=== PATIENT | male | born 1940 | race Caucasian/White ===

== ENCOUNTER 2020-11-28 09:09 | Inpatient (IN) | payer OTHER, MEDICARE ==
[~2020-11-28] VITALS: Ht 177.8 cm; Wt 89.8 kg
[~2020-11-28 09:09] MED LIST: ALBU6.7H3 IH; ASPI-1265 PO; BUDE10.2 INH; CLOP75TA34 PO; FINA5TAB11 PO; FURO40TA4 PO; LOP25T PO; NAPR-56 PO; NOR5T PO; OMEP40CA13 PO; PRED10TA PO; SIMV80TA2 PO; TIOT18CA3 INH
[2020-11-28 10:21] LABS: BASOPHILS # (AUTO) 0.1 X10'3 (0-0.2); BASOPHILS % (AUTO) 0.9 % (0-1); EOSINOPHILS # (AUTO) 0.1 X10'3 (0-0.9); EOSINOPHILS % (AUTO) 1.4 % (0-6); HEMOGLOBIN 13.3 g/dl (14.0-17.9); LYMPHOCYTES # (AUTO) 1.3 X10'3 (1.1-4.8); LYMPHOCYTES % (AUTO) 14.2 % (21-51); MEAN CORPUSCULAR HEMOGLOBIN 31.4 PG (27.0-31.0); MEAN CORPUSCULAR HGB CONC 33.2 g/dL (33.0-36.5); MEAN CORPUSCULAR VOLUME 94.5 FL (78-98); MONOCYTES # (AUTO) 1.2 X10'3 (0-0.9); MONOCYTES % (AUTO) 12.5 % (2-12); NEUTROPHILS # (AUTO) 6.6 X10'3 (1.8-7.7); PLATELET COUNT 356 X10'3 (140-440); RED BLOOD COUNT 4.23 X10'6 (4.70-6.10); RED CELL DISTRIBUTION WIDTH 12.7 % (11.5-14.5); WHITE BLOOD COUNT 9.4 X10'3 (4.5-11.0)
[2020-11-28 11:30] LABS: ALANINE AMINOTRANSFERASE 28 U/L (12-78); ALBUMIN 3.1 G/DL (3.4-5.0); ALBUMIN/GLOBULIN RATIO 0.7 (1.1-1.5); ALKALINE PHOSPHATASE 189 IU/L (46-116); ANION GAP 8 (8-16); ASPARTATE AMINO TRANSFERASE 29 U/L (10-37); BILIRUBIN,TOTAL 0.7 MG/DL (0.1-1.0); BLOOD UREA NITROGEN 11 MG/DL (7-18); BUN/CREATININE RATIO 12.5 (5.4-32.0); CHLORIDE 98 MMOL/L (99-107); CREATININE 0.88 MG/DL (0.60-1.10); GLUCOSE 112 MG/DL (70-104); POTASSIUM 4.5 MMOL/L (3.5-5.1); SODIUM 133 MMOL/L (135-145); TOTAL CARBON DIOXIDE 26.8 MMOL/L (24-32); TOTAL PROTEIN 7.4 G/DL (6.4-8.2); eGFR 83 ML/MIN
[2020-11-28] MEDS ORDERED: iohexol 350MG/ML 100ml bottle IV ONE (11:36)
[2020-11-28] MEDS ORDERED: iohexol 350 MG/ML 50ML vial IV ONE (11:37)
[2020-11-28] MEDS ORDERED: morphine 4 MG/ML inj SYRINge IV PRN (13:05)
[2020-11-28] MEDS ORDERED: ondansetron/PF 4mg/2ml inj IV ONE (13:05)
[2020-11-28] MEDS ORDERED: vancomycin/NS 1 GM ADD-VANTAGE 250 ML IV ONE (13:30)
[2020-11-28] MEDS ORDERED: piperacillin/tazo 3.375gm/50ml 50 ML IV ONE (13:30)
[2020-11-28] MEDS ORDERED: normal saline 1000ml 1,000 ML IV SCH (14:05)
[2020-11-28] MEDS ORDERED: mag hydrox/Alum hydrox/simeth 30ml oral suspension PO PRN (14:45)
[2020-11-28] MEDS ORDERED: ALBUTEROL INHALER 1 PUFF/90 MCG INHALER IH PRN (14:45)
[2020-11-28] MEDS ORDERED: morphine 2 MG/ML inj. syringe IV PRN ×2 (14:45)
[2020-11-28] MEDS ORDERED: acetaminophen 325mg tablet PO PRN ×2 (14:45)
[2020-11-28] MEDS ORDERED: HYDROcodone/acetaminophen 5mg/325mg tablet PO PRN (14:45)
[2020-11-28] MEDS ORDERED: ondansetron/PF 4mg/2ml inj IV PRN (14:45)
[2020-11-28] MEDS: ipratropium/albuterol 3ml nebule IH SCH ×2 (16:02→20:26)
[2020-11-28] MEDS: normal saline 1000ml 1,000 ML IV SCH (16:55)
[2020-11-28] MEDS: ceFAZolin/D5W- 1GM premix 50 ML IV SCH (16:57)
--- NOTE | 2020-11-28 19:05 | NUR ---
Pt assisted to bedside comode. Pt had BM. Pt gets SOB with exertion. Pt states this has been happening for several months.
[2020-11-28] MEDS: budesonide 0.5mg/2ml UD nebule IH SCH (20:26)
[2020-11-28] MEDS: atorvastatin 20mg tablet PO SCH (20:53)
[2020-11-28] MEDS: metoprolol tartrate 25mg tablet PO SCH (20:53)
[2020-11-29] VITALS (9 sets, daily range): BP systolic 125–164; BP diastolic 53–80
[2020-11-29] MEDS: normal saline 1000ml 1,000 ML IV SCH ×4 (00:06→20:45)
[2020-11-29] MEDS: ceFAZolin/D5W- 1GM premix 50 ML IV SCH ×4 (00:37→23:46)
[2020-11-29] MEDS: naproxen 500mg tablet PO PRN ×2 (00:41→23:43)
[2020-11-29 02:16] LABS: BASOPHILS # (AUTO) 0.1 X10'3 (0-0.2); EOSINOPHILS # (AUTO) 0.1 X10'3 (0-0.9); EOSINOPHILS % (AUTO) 1.2 % (0-6); HEMATOCRIT 38.2 % (42.0-52.0); HEMOGLOBIN 12.9 g/dl (14.0-17.9); LYMPHOCYTES # (AUTO) 1.7 X10'3 (1.1-4.8); LYMPHOCYTES % (AUTO) 16.3 % (21-51); MEAN CORPUSCULAR HEMOGLOBIN 32.2 PG (27.0-31.0); MEAN CORPUSCULAR HGB CONC 33.7 g/dL (33.0-36.5); MEAN CORPUSCULAR VOLUME 95.5 FL (78-98); MEAN PLATELET VOLUME 8.1 FL (7.4-10.4); MONOCYTES # (AUTO) 1.2 X10'3 (0-0.9); MONOCYTES % (AUTO) 11.2 % (2-12); NEUTROPHILS # (AUTO) 7.5 X10'3 (1.8-7.7); NEUTROPHILS % (AUTO) 70.3 % (42-75); PLATELET COUNT 316 X10'3 (140-440); RED CELL DISTRIBUTION WIDTH 12.5 % (11.5-14.5); WHITE BLOOD COUNT 10.7 X10'3 (4.5-11.0)
[2020-11-29 02:29] LABS: ALANINE AMINOTRANSFERASE 28 U/L (12-78); ALBUMIN 2.8 G/DL (3.4-5.0); ALBUMIN/GLOBULIN RATIO 0.7 (1.1-1.5); ALKALINE PHOSPHATASE 181 IU/L (46-116); ANION GAP 7 (8-16); ASPARTATE AMINO TRANSFERASE 33 U/L (10-37); BILIRUBIN,TOTAL 0.4 MG/DL (0.1-1.0); BLOOD UREA NITROGEN 8 MG/DL (7-18); BUN/CREATININE RATIO 9.4 (5.4-32.0); CALCIUM 8.3 MG/DL (8.5-10.1); CHLORIDE 102 MMOL/L (99-107); CREATININE 0.85 MG/DL (0.60-1.10); GLUCOSE 123 MG/DL (70-104); POTASSIUM 4.2 MMOL/L (3.5-5.1); SODIUM 138 MMOL/L (135-145); TOTAL CARBON DIOXIDE 28.7 MMOL/L (24-32); TOTAL PROTEIN 6.6 G/DL (6.4-8.2); eGFR 87 ML/MIN
[2020-11-29 02:31] LABS: PARTIAL THROMBOPLASTIN TIME 26 SECONDS (22-32)
[2020-11-29] MEDS: ipratropium/albuterol 3ml nebule IH SCH ×4 (02:56→21:01)
--- NOTE | 2020-11-29 06:35 | NUR ---
Patient in room PCU 3017. I have received report from TIANNA Arriaga and had the opportunity to ask questions and assume patient care.
[2020-11-29] MEDS: aspirin 81mg tab.chew PO SCH (08:00)
[2020-11-29] MEDS: clopidogrel 75mg tablet PO SCH (08:00)
[2020-11-29] MEDS: budesonide 0.5mg/2ml UD nebule IH SCH ×2 (08:12→21:01)
[2020-11-29] MEDS: pantoprazole 40mg Tablet.DR PO SCH (08:33)
[2020-11-29] MEDS: amLODIPine 5mg tablet PO SCH (08:34)
[2020-11-29] MEDS: metoprolol tartrate 25mg tablet PO SCH ×2 (08:34→20:45)
[2020-11-29] MEDS: finasteride 5mg tablet PO SCH (08:37)
[2020-11-29] MEDS ORDERED: midazolam 2 mg/2 ml injection ONE ×2 (08:56→10:20)
[2020-11-29] MEDS ORDERED: heparin 1,000 UNITS/NS 500ml 500 ML ONE (08:56)
[2020-11-29] MEDS ORDERED: fentaNYL/PF 50MCG/1 ML 2ML syringe ONE ×3 (08:56→10:55)
[2020-11-29] MEDS ORDERED: iohexol 300mg/ml 100ml inj. ONE (08:56)
[2020-11-29] MEDS ORDERED: LIDOcaine 1%/PF 5ML 10 MG/ML VIAL ONE (08:56)
--- NOTE | 2020-11-29 10:03 | NUR ---
Pt out for Angio procedure to Rt. leg.
[2020-11-29] MEDS ORDERED: heparin 1,000unit/ml 10ml vial 10 ML ONE (11:00)
--- NOTE | 2020-11-29 11:22 | NUR ---
ID: [phone] MESSAGE: Hazel/ALEX 2622. Pt: Josué. RM: 3017-B . Critical Lab: Blood Culture from 11/28 Rt arm aerobic bottle, Positive Gram Cocci in cluster at 22.49 hr. thanks
--- NOTE | 2020-11-29 12:51 | NUR ---
Pt back from procedure around 1210. No s/s of bleeding or hematoma noted to puncture site. V/S 98.5, 59, 16, 91% R/A, 142/60. will cont. to monitor.
--- NOTE | 2020-11-29 15:11 | NUR ---
Problems reprioritized. Patient report given, questions answered & plan of care reviewed with surgical nurse TIANNA Lopez .
--- NOTE | 2020-11-29 15:53 | NUR ---
Patient just arrived to his new room. Patient alert, oriented x 4. Left groin dressing has a little blood stain noted, blood stain marked to monitor progress.
[2020-11-29] MEDS ORDERED: MESSAGE TO NURSING PO ONE (15:56)
--- NOTE | 2020-11-29 16:09 | NUR ---
Pt transferred to surgical floor in stable condition. Pt belongings and medication sent with pt.
--- NOTE | 2020-11-29 19:05 | NUR ---
Problems reprioritized. Patient report given, questions answered & plan of care reviewed with Brooklynn WYNN.
[2020-11-29] MEDS: lactobacillus rhamnosus 10,000 MMU CELLS/CAPSULE PO SCH (20:46)
[2020-11-29] MEDS: atorvastatin 20mg tablet PO SCH (20:46)
[2020-11-30] VITALS: BP 136/49
[2020-11-30] MEDS: normal saline 1000ml 1,000 ML IV SCH ×4 (01:30→18:34)
[2020-11-30] MEDS: ipratropium/albuterol 3ml nebule IH SCH ×4 (03:21→20:17)
--- NOTE | 2020-11-30 05:20 | NUR ---
Paged sent to Dr. Manning due to concerns over low urine out overnight with 300cc out and 200 charted for day shift. He is on NS at 75/ml BUN 8, creatinine .85, Bladder scan showed 170cc. awaiting response
--- NOTE | 2020-11-30 06:39 | NUR ---
Patient in room [facility] 355. I have received report from Brooklynn WYNN and had the opportunity to ask questions and assume patient care.
[2020-11-30 07:00] VITALS: BP 152/59
[2020-11-30 07:57] LABS: ALBUMIN 2.7 G/DL (3.4-5.0); ANION GAP 7 (8-16); BLOOD UREA NITROGEN 11 MG/DL (7-18); BUN/CREATININE RATIO 12.6 (5.4-32.0); CALCIUM 7.9 MG/DL (8.5-10.1); CHLORIDE 103 MMOL/L (99-107); CREATININE 0.87 MG/DL (0.60-1.10); GLUCOSE 116 MG/DL (70-104); POTASSIUM 3.9 MMOL/L (3.5-5.1); SODIUM 138 MMOL/L (135-145); TOTAL CARBON DIOXIDE 27.9 MMOL/L (24-32); eGFR 84 ML/MIN
[2020-11-30] MEDS: pantoprazole 40mg Tablet.DR PO SCH (08:34)
[2020-11-30] MEDS: aspirin 81mg tab.chew PO SCH (08:34)
[2020-11-30] MEDS: lactobacillus rhamnosus 10,000 MMU CELLS/CAPSULE PO SCH ×2 (08:35→19:44)
[2020-11-30] MEDS: clopidogrel 75mg tablet PO SCH (08:35)
[2020-11-30] MEDS: metoprolol tartrate 25mg tablet PO SCH ×2 (08:35→19:44)
[2020-11-30] MEDS: ceFAZolin/D5W- 1GM premix 50 ML IV SCH ×2 (08:35→18:35)
[2020-11-30] MEDS: amLODIPine 5mg tablet PO SCH (08:35)
[2020-11-30] MEDS: finasteride 5mg tablet PO SCH (08:35)
[2020-11-30] MEDS: budesonide 0.5mg/2ml UD nebule IH SCH ×2 (08:43→20:16)
[2020-11-30 11:00] VITALS: BP 141/67
[2020-11-30 18:00] VITALS: BP 144/90
--- NOTE | 2020-11-30 18:51 | NUR ---
Patient in room [facility] 355. I have received report from ROD WYNN and had the opportunity to ask questions and assume patient care.
[2020-11-30] MEDS: atorvastatin 20mg tablet PO SCH (22:10)
[2020-12-01] VITALS: BP 135/54
[2020-12-01] MEDS: ceFAZolin/D5W- 1GM premix 50 ML IV SCH ×4 (00:31→23:55)
[2020-12-01] MEDS: naproxen 500mg tablet PO PRN (00:34)
[2020-12-01] MEDS: normal saline 1000ml 1,000 ML IV SCH ×3 (02:45→12:45)
[2020-12-01] MEDS: ipratropium/albuterol 3ml nebule IH SCH ×4 (03:31→20:49)
--- NOTE | 2020-12-01 06:20 | NUR ---
Problems reprioritized. Patient report given, questions answered & plan of care reviewed with DEDE WYNN.
[2020-12-01 07:00] VITALS: BP 154/64
[2020-12-01 07:22] LABS: ALBUMIN 2.3 G/DL (3.4-5.0); ANION GAP 8 (8-16); BLOOD UREA NITROGEN 15 MG/DL (7-18); BUN/CREATININE RATIO 18.8 (5.4-32.0); CALCIUM 7.9 MG/DL (8.5-10.1); CHLORIDE 101 MMOL/L (99-107); GLUCOSE 113 MG/DL (70-104); SODIUM 136 MMOL/L (135-145); TOTAL CARBON DIOXIDE 26.9 MMOL/L (24-32); eGFR > 90 ML/MIN
[2020-12-01 07:24] LABS: POTASSIUM 4.4 MMOL/L (3.5-5.1)
[2020-12-01] MEDS: budesonide 0.5mg/2ml UD nebule IH SCH ×2 (07:27→20:48)
[2020-12-01] MEDS: lactobacillus rhamnosus 10,000 MMU CELLS/CAPSULE PO SCH ×2 (08:54→20:31)
[2020-12-01] MEDS: clopidogrel 75mg tablet PO SCH (08:54)
[2020-12-01] MEDS: amLODIPine 5mg tablet PO SCH (08:55)
[2020-12-01] MEDS: metoprolol tartrate 25mg tablet PO SCH ×2 (08:55→20:31)
[2020-12-01] MEDS: aspirin 81mg tab.chew PO SCH (08:55)
[2020-12-01] MEDS: finasteride 5mg tablet PO SCH (09:02)
[2020-12-01] MEDS: pantoprazole 40mg Tablet.DR PO SCH (09:02)
[2020-12-01] MEDS ORDERED: CEPH500C5 PO (10:47)
[2020-12-01 11:00] VITALS: BP 166/70
--- NOTE | 2020-12-01 11:19 | NUR ---
PAGER ID: [phone] MESSAGE: PLACIDO MEDRANO 355A PT HAS NO IV. DID NOT FINISH AM ANTIBIOTIC VIA IV. DISCHARGE NOTED. DO YOU WANT TO SEE PT. BEFORE DISCHARGE? DEDE [id number]
--- NOTE | 2020-12-01 12:19 | NUR ---
PT. REFUSING THERAPY. STANDS INDEPENDENTLY AT BEDSIDE BUT LOOKS TO HAVE POOR BALANCE. SWOLLEN BILAT LOWER EXTREMITIES. PT. STATES "I DONT NEED NO THERAPY. I GOT THIS FAR SOMEHOW. I'LL MANAGE. I JUST WANT TO GET HOME TO MY ." EDUCATED ON THE DANGERS OF NOT BEING ASSESSED BY THERAPY AND EDUCATED ON THE BENEFITS OF HOME HEALTH. PT. REFUSING EDUCATION. NOTIFIED MD AND CM OF SITUATION. CM ORDERING HOME HEALTH AND STATES PT. CAN REFUSE AT THE TIME OF SERVICE OFFERED. STATES TO ORDER PT EVAL. PT EVAL ORDERED AND PAGE SENT TO PT REQUESTING STAT SERVICE FOR DISCHARGE EVAL.
--- NOTE | 2020-12-01 13:15 | NUR ---
PAGED PT. AGAIN
--- NOTE | 2020-12-01 13:25 | NUR ---
PAGER ID: [phone] MESSAGE: Rzea Moses 355A PT doesn't think they will be able to eval pt. today. They have 24 hours to assess. Do you still want me to discharge pt. Otherwise I need no IV order. Please call Gemma [phone]
--- NOTE | 2020-12-01 13:44 | NUR ---
Still awaiting MD response
--- NOTE | 2020-12-01 15:06 | NUR ---
No response from yet regarding first page. Sent new page: PAGER ID: [phone] MESSAGE: Reza Moses 355A If you are not going to discharge this pt. may I please get a no IV order and DC fluids IV antibiotics?? Give PO antibiotics. Discharge is on hold per your order. Gemma [phone]
--- NOTE | 2020-12-01 15:40 | NUR ---
called floor and this primary Rn spoke to her. She stated ok to hold discharge and DC fluids.
[2020-12-01 18:00] VITALS: BP 135/70
--- NOTE | 2020-12-01 18:28 | NUR ---
Gave report to Prudence TIANNA.
--- NOTE | 2020-12-01 18:33 | NUR ---
Patient in room [facility] 355. I have received report from DEDE WYNN and had the opportunity to ask questions and assume patient care.
[2020-12-01] MEDS: magnesium hydroxide 30ml (MOM) UD suspension PO PRN (20:31)
[2020-12-01] MEDS: atorvastatin 20mg tablet PO SCH (20:44)
[2020-12-02] VITALS: BP 150/60
[2020-12-02] MEDS: naproxen 500mg tablet PO PRN (01:38)
[2020-12-02] MEDS: ipratropium/albuterol 3ml nebule IH SCH ×4 (03:00→20:40)
--- NOTE | 2020-12-02 06:23 | NUR ---
Problems reprioritized. Patient report given, questions answered & plan of care reviewed with DEDE WYNN.
[2020-12-02 07:15] LABS: ALBUMIN 2.4 G/DL (3.4-5.0); ANION GAP 6 (8-16); CHLORIDE 103 MMOL/L (99-107); CREATININE 0.71 MG/DL (0.60-1.10); GLUCOSE 114 MG/DL (70-104); SODIUM 137 MMOL/L (135-145); TOTAL CARBON DIOXIDE 28.1 MMOL/L (24-32); eGFR > 90 ML/MIN
[2020-12-02 07:26] LABS: BLOOD UREA NITROGEN 12 MG/DL (7-18); BUN/CREATININE RATIO 16.9 (5.4-32.0)
[2020-12-02] MEDS: finasteride 5mg tablet PO SCH (07:52)
[2020-12-02] MEDS: lactobacillus rhamnosus 10,000 MMU CELLS/CAPSULE PO SCH ×2 (07:52→20:06)
[2020-12-02] MEDS: ceFAZolin/D5W- 1GM premix 50 ML IV SCH (07:52)
[2020-12-02] MEDS: budesonide 0.5mg/2ml UD nebule IH SCH ×2 (07:52→20:39)
[2020-12-02] MEDS: amLODIPine 5mg tablet PO SCH (07:53)
[2020-12-02] MEDS: metoprolol tartrate 25mg tablet PO SCH ×2 (07:53→20:07)
[2020-12-02] MEDS: clopidogrel 75mg tablet PO SCH (07:53)
[2020-12-02] MEDS: pantoprazole 40mg Tablet.DR PO SCH (07:53)
[2020-12-02] MEDS: aspirin 81mg tab.chew PO SCH (07:53)
--- NOTE | 2020-12-02 08:01 | NUR ---
No Iv IN PT. pt. STATES IT CAME OUT AT 0100 LAST NIGHT.
[2020-12-02] MEDS: magnesium hydroxide 30ml (MOM) UD suspension PO PRN (08:08)
--- NOTE | 2020-12-02 08:11 | NUR ---
PAGER ID: [phone] MESSAGE: Nikkie MEDRANO 355A IV CAME OUT IN MIDDLE OF NIGHT. NEED US TO GET BACK IN. POSS DC TODAY. ATB IV DUE NOW. MAY I HAVE PO ATB ORDERS AND ORDERS FOR NO IV UNTIL DC? DEDE [id number]
[2020-12-02 08:28] VITALS: BP 148/68
[2020-12-02] MEDS: cephalexin 500mg capsule PO SCH ×2 (09:15→16:00)
--- NOTE | 2020-12-02 11:00 | NUR ---
Spoke to MD Foster during rounds. She is aware of results of arterial studies. States she is attempting to reach Juan who is noted to be consulted in notes. Discussed with MD that I had spoke with Dr. Torres yesterday and that he would like pt. to follow up in outpatient vascular clinic with him in 2 weeks. Anamaria reached Cristian and then primary RN received update from Cristian. She stated that Anamaria may be suggesting CTA again however hospitalist would like to wait and consult with Hill once he returns from vacation. States she will not be discharging pt. today.
[2020-12-02 12:00] VITALS: BP 126/58
--- NOTE | 2020-12-02 16:06 | NUR ---
PAGER ID: [phone] MESSAGE: Reza Walker has edema all over and good kidney function. SOB. iv Lasix once? (End of page deleted r/t HIPPA) Gemma [phone]
--- NOTE | 2020-12-02 18:33 | NUR ---
Gave report to Wilma WYNN.
--- NOTE | 2020-12-02 18:37 | NUR ---
Echo called. They will do echo in AM as they just left for the day.
--- NOTE | 2020-12-02 18:46 | NUR ---
I have received report from Gemma WYNN and had the opportunity to ask questions and assume patient care.
[2020-12-02 19:00] VITALS: BP 161/71
[2020-12-02] MEDS: atorvastatin 20mg tablet PO SCH (20:08)
[2020-12-03] VITALS: BP 149/64
[2020-12-03] MEDS: cephalexin 500mg capsule PO SCH ×4 (00:33→23:57)
[2020-12-03] MEDS: ipratropium/albuterol 3ml nebule IH SCH ×4 (03:00→20:34)
--- NOTE | 2020-12-03 06:16 | NUR ---
Problems reprioritized. Patient report given, questions answered & plan of care reviewed with Binta WYNN.
--- NOTE | 2020-12-03 06:44 | NUR ---
Patient in room [facility] 355A. I have received report from TIANNA Dillon and had the opportunity to ask questions and assume patient care.
[2020-12-03 06:57] LABS: ALBUMIN 2.7 G/DL (3.4-5.0); ANION GAP 9 (8-16); BLOOD UREA NITROGEN 10 MG/DL (7-18); BUN/CREATININE RATIO 12.5 (5.4-32.0); CALCIUM 8.6 MG/DL (8.5-10.1); CHLORIDE 102 MMOL/L (99-107); GLUCOSE 107 MG/DL (70-104); POTASSIUM 4.2 MMOL/L (3.5-5.1); SODIUM 137 MMOL/L (135-145); TOTAL CARBON DIOXIDE 25.8 MMOL/L (24-32); eGFR > 90 ML/MIN
[2020-12-03 07:00] VITALS: BP 166/70
[2020-12-03] MEDS: budesonide 0.5mg/2ml UD nebule IH SCH ×2 (07:00→20:34)
[2020-12-03] MEDS: pantoprazole 40mg Tablet.DR PO SCH (07:37)
[2020-12-03] MEDS: aspirin 81mg tab.chew PO SCH (07:38)
[2020-12-03] MEDS: metoprolol tartrate 25mg tablet PO SCH ×2 (07:38→19:33)
[2020-12-03] MEDS: lactobacillus rhamnosus 10,000 MMU CELLS/CAPSULE PO SCH ×2 (07:38→19:32)
[2020-12-03] MEDS: amLODIPine 5mg tablet PO SCH (07:39)
[2020-12-03] MEDS: clopidogrel 75mg tablet PO SCH (07:39)
[2020-12-03] MEDS: finasteride 5mg tablet PO SCH (07:40)
[2020-12-03 11:00] VITALS: BP 114/49
--- NOTE | 2020-12-03 15:18 | NUR ---
Initial: Pt admit DX PVD, R leg cellulitis, HTN, COPD exacerbation, and dyslipidemia per EMR. RLE +4 severe edema pending surgeon emely at this time per MD note. Pt PO 100% avg regular diet w/ prune juice TIDWM per MD order meeting needs. LBM 12/02. No nutrition concerns at this time. Will continue to monitor. Rec: 1. continue regular diet; prune juice TIDWM per MD order 2. routine bowel care 3. wts per rx Addendum: 12/03/20 at [address] Amended: Links added.
--- NOTE | 2020-12-03 18:35 | NUR ---
I have received report from Binta WYNN and had the opportunity to ask questions and assume patient care.
--- NOTE | 2020-12-03 18:37 | NUR ---
Problems reprioritized. Patient report given, questions answered & plan of care reviewed with TIANNA SANDOVAL.
[2020-12-03 19:00] VITALS: BP 138/71
[2020-12-03] MEDS: atorvastatin 20mg tablet PO SCH (19:32)
[2020-12-03] MEDS: naproxen 500mg tablet PO PRN (21:46)
--- NOTE | 2020-12-03 22:03 | NUR ---
Problems reprioritized. Patient report given, questions answered & plan of care reviewed with Jose WYNN.
[2020-12-04] VITALS: BP 120/71
[2020-12-04] MEDS: ipratropium/albuterol 3ml nebule IH SCH ×2 (02:53→09:00)
--- NOTE | 2020-12-04 06:52 | NUR ---
Problems reprioritized. Patient report given, questions answered & plan of care reviewed with Minna. Addendum: 12/04/20 at 0653 by Kyaw Mccarthy RN Amended: Links added.
--- NOTE | 2020-12-04 07:10 | NUR ---
Patient in room [facility] 355. I have received report from joie gonzalez and had the opportunity to ask questions and assume patient care.
[2020-12-04] MEDS: budesonide 0.5mg/2ml UD nebule IH SCH (08:00)
[2020-12-04] MEDS: lactobacillus rhamnosus 10,000 MMU CELLS/CAPSULE PO SCH (08:30)
[2020-12-04] MEDS: aspirin 81mg tab.chew PO SCH (08:30)
[2020-12-04] MEDS: cephalexin 500mg capsule PO SCH (08:30)
[2020-12-04] MEDS: pantoprazole 40mg Tablet.DR PO SCH (08:30)
[2020-12-04] MEDS: metoprolol tartrate 25mg tablet PO SCH (08:30)
[2020-12-04] MEDS: amLODIPine 5mg tablet PO SCH (08:30)
[2020-12-04] MEDS: clopidogrel 75mg tablet PO SCH (08:30)
[2020-12-04] MEDS: finasteride 5mg tablet PO SCH (08:31)
[2020-12-04 11:49] VITALS: BP 157/67
--- NOTE | 2020-12-04 16:38 | NUR ---
PT DISCHARGED IN STABLE CONDITION. LEFT FACILITY IN PRIVATE VEHICLE WITH . PT AWARE HE NEEDS TO FOLLOW UP WITH PCP. NO IV. ALL BELONGINGS IN HAND. FOLLOW UP INSTRUCTIONS GIVEN, ALL QUESTIONS ANSWERED. Addendum: 12/04/20 at 1639 by Maria Dolores Estevez RN Amended: Links added.
== END 2020-12-04 16:31 | disposition home or self-care (01) | DRG 253 ==
LOC: ER 09:09 → ED HOLD 14:42 → PCU 3S 11-29 01:33 → SUR 3N 11-29 15:54
PROVIDERS: ADMIT Internal Medicine; ATTEND Internal Medicine
PROC: 047K3ZZ Dilation of Right Femoral Artery, Percutaneous Approach (ICD-10-PCS; principal; 2020-11-29)
DX: I73.9 Peripheral vascular disease, unspecified (principal); J44.1 Chronic obstructive pulmonary disease with (acute) exacerbation; L03.115 Cellulitis of right lower limb; E78.5 Hyperlipidemia, unspecified; I10 Essential (primary) hypertension; K21.9 Gastro-esophageal reflux disease without esophagitis; Z20.822 Contact with and (suspected) exposure to COVID-19; I25.10 Atherosclerotic heart disease of native coronary artery without angina pectoris; N40.0 Benign prostatic hyperplasia without lower urinary tract symptoms; Z87.891 Personal history of nicotine dependence; Z87.01 Personal history of pneumonia (recurrent); Z88.8 Allergy status to other drugs, medicaments and biological substances; Z79.899 Other long term (current) drug therapy; Z79.82 Long term (current) use of aspirin; Z79.51 Long term (current) use of inhaled steroids
CPT/HCPCS: 36415; 37224; 71045; 72191; 73630; 73706; 76937; 80048; 80053; 83605; 83880; 84145; 84484; 85025; 85610; 85730; 87040; 87077; 87081; 87186; 87635; 93005; 93306; 93922; 93925; 93926; 93971; 94640; 94760; 96365; 96367; 97116; 97161; 97530; 99152; 99153; 99291; C1725; C1760; C1769; C1887; C1894; G0378; J0690; J1644; J2250; J2405; J2543; J3010; J3370; J7030; J7626; Q9967

== ENCOUNTER 2021-07-13 17:03 | Inpatient (IN) | payer OTHER, MEDICARE ==
[~2021-07-13] VITALS: Ht 177.8 cm; Wt 90.9 kg
[~2021-07-13 17:03] MED LIST changes: +CEPH-585 PO; -FURO40TA4 PO; -NAPR-56 PO; -OMEP40CA13 PO; +OMEP40CA21 PO; -PRED10TA PO
[2021-07-13] MEDS ORDERED: normal saline 1000ML IV soln IV ONE (17:40)
[2021-07-13] MEDS ORDERED: piperacillin/tazo 3.375gm/50ml 50 ML IV ONE (18:10)
--- NOTE | 2021-07-13 18:32 | NUR ---
four unsuccessful attempts for iv start, blood was drawn by lab but hemolyzed. re Addendum: 07/13/21 at 1833 by RPRATHER requested another rn attempt to start iv, notified of difficulty getting iv access thus far
--- NOTE | 2021-07-13 18:34 | NUR ---
US TECH IN TO DO ULTRASOUND
[2021-07-13] MEDS: morphine 2 MG/ML inj. syringe IV PRN ×2 (20:21→23:06)
[2021-07-13 20:29] LABS: BASOPHILS # (AUTO) 0.1 X10'3 (0-0.2); BASOPHILS % (AUTO) 0.2 % (0-1); EOSINOPHILS # (AUTO) 0.3 X10'3 (0-0.9); HEMATOCRIT 33.6 % (42.0-52.0); HEMOGLOBIN 11.1 g/dl (14.0-17.9); LYMPHOCYTES # (AUTO) 1.8 X10'3 (1.1-4.8); LYMPHOCYTES % (AUTO) 6.4 % (21-51); MEAN CORPUSCULAR HEMOGLOBIN 31.1 PG (27.0-31.0); MEAN CORPUSCULAR HGB CONC 33.2 g/dL (33.0-36.5); MEAN CORPUSCULAR VOLUME 93.8 FL (78-98); MEAN PLATELET VOLUME 9.6 FL (7.4-10.4); MONOCYTES # (AUTO) 1.4 X10'3 (0-0.9); NEUTROPHILS # (AUTO) 24.8 X10'3 (1.8-7.7); NEUTROPHILS % (AUTO) 87.4 % (42-75); PLATELET COUNT 341 X10'3 (140-440); RED BLOOD COUNT 3.58 X10'6 (4.70-6.10); RED CELL DISTRIBUTION WIDTH 17.9 % (11.5-14.5)
[2021-07-13 20:33] LABS: WHITE BLOOD COUNT 28.4 X10'3 (4.5-11.0)
[2021-07-13 21:46] LABS: ANISOCYTOSIS 1+; PLATELET ESTIMATE NORMAL; TOTAL CELLS COUNTED 100
[2021-07-13 21:47] LABS: BURR CELLS 3+; SCHISTOCYTES FEW; TARGET CELLS FEW
[2021-07-13 22:25] LABS: ALANINE AMINOTRANSFERASE 11 U/L (12-78); ALBUMIN 1.5 G/DL (3.4-5.0); ALBUMIN/GLOBULIN RATIO 0.3 (1.1-1.5); ALKALINE PHOSPHATASE 376 IU/L (46-116); ANION GAP 14 (8-16); ASPARTATE AMINO TRANSFERASE 41 U/L (10-37); BILIRUBIN,TOTAL 2.5 MG/DL (0.1-1.0); BLOOD UREA NITROGEN 51 MG/DL (7-18); BUN/CREATININE RATIO 8.6 (5.4-32.0); CALCIUM 6.3 MG/DL (8.5-10.1); CHLORIDE 107 MMOL/L (99-107); CREATININE 5.92 MG/DL (0.60-1.10); GLUCOSE 77 MG/DL (70-104); MAGNESIUM 1.6 MG/DL (1.5-2.4); POTASSIUM 4.4 MMOL/L (3.5-5.1); SODIUM 141 MMOL/L (135-145); TOTAL CARBON DIOXIDE 19.9 MMOL/L (24-32); TOTAL PROTEIN 5.9 G/DL (6.4-8.2); eGFR 9 ML/MIN
[2021-07-13] MEDS ORDERED: ondansetron/PF 4mg/2ml inj IV ONE ×2 (22:50→23:05)
--- NOTE | 2021-07-13 23:36 | NUR ---
Dr. Harris at bedside to visualize pt before admission to hospital.
[2021-07-14] MEDS ORDERED: normal saline 1000ML IV soln IVB ONE (00:10)
[2021-07-14] MEDS ORDERED: magnesium hydroxide 30ml (MOM) UD suspension PO PRN (02:30)
[2021-07-14] MEDS ORDERED: ondansetron/PF 4mg/2ml inj IV PRN ×2 (02:30→15:50)
[2021-07-14] MEDS ORDERED: LIDOcaine 2% 10ml TOPICAL JELLY (Urojet) TP ONE (02:30)
[2021-07-14] MEDS ORDERED: acetaminophen 325mg tablet PO PRN ×2 (02:30)
[2021-07-14] MEDS ORDERED: vancomycin/NS 1 GM ADD-VANTAGE 250 ML IV PRN (02:56)
[2021-07-14] MEDS ORDERED: vancomycin/NS 1 GM ADD-VANTAGE 250 ML IV ONE (03:00)
[2021-07-14 04:18] LABS: COLOR,URINE YELLOW (Yellow); GLUCOSE, URINE NEGATIVE (Neg); KETONES,URINE NEGATIVE (Neg); LEUKOCYTE ESTERASE ,URINE NEGATIVE (Neg); NITRITES, URINE NEGATIVE (Neg); OCCULT BLOOD,URINE LARGE (Neg); PROTEIN,URINE NEGATIVE (Neg)
[2021-07-14 04:26] LABS: UA COLLECTION TYPE FOLEY CATH
[2021-07-14 04:27] LABS: CLARITY,URINE SLIGHTLY CLOUDY (Clear); WBC,URINE NONE SEEN /HPF (0-4)
[2021-07-14 04:28] LABS: AMORPHOUS URATES 1+; BACTERIA,URINE FEW /HPF (Neg); SQUAMOUS EPITHELIAL CELL,UR FEW /LPF (FEW)
[2021-07-14] MEDS ORDERED: heparin, porcine 5000 units/ml vial SQ SCH (08:00)
[2021-07-14] MEDS ORDERED: piperacillin/tazo 3.375gm/50 ML IV SCH (08:14)
--- NOTE | 2021-07-14 08:43 | NUR ---
Pt HR increased to 140's, intensivest Dr. Rojas called and received VO for Magnesium 4g IV x 1 now, Calcium gluconate 1 gm IV x 1 now, and Amioderone bolus and start gtt
[2021-07-14] MEDS ORDERED: calcium gluconate inj. 1 GM in normal saline 100ml IV soln 100 ML IV ONE (08:50)
[2021-07-14] MEDS ORDERED: amiodarone 150mg/dext, iso-os 100 ML IV ONE (08:50)
[2021-07-14] MEDS ORDERED: magnesium 4gm in 100ml NS 100 ML IV ONE (08:50)
[2021-07-14] MEDS ORDERED: CALCIUM GLUC 1gm/50ml NACL,iso 50 ML IV ONE (08:51)
[2021-07-14] MEDS: amiodarone/D5 360MG/200ML BAG 200 ML IV SCH ×2 (09:05→15:05)
--- NOTE | 2021-07-14 11:20 | NUR ---
PER DR LUNA CENTRAL LINE PLACEMENT NOT CORRECT. RN TO DC CENTRAL LINE.
--- NOTE | 2021-07-14 11:32 | NUR ---
DR ANGEL MADE AWARE PATIENT'S CENTRAL LINE NOT IN PROPER PLACEMENT PER DR FRASER. AT BEDSIDE, MD TO SPEAK WITH PATIENT REGARDING CODE STATUS. DR MARTI PAGED TO SPEAK WITH REGARDING SURGERY.
--- NOTE | 2021-07-14 11:33 | NUR ---
DR LUNA AT BEDSIDE TO UPDATE . BP 70/45
--- NOTE | 2021-07-14 11:50 | NUR ---
DR MARTI, DR LUNA, AND DR ANGEL IN TO SPEAK WITH REGARDING CODE STATUS. LESLIE AT BEDSIDE STATES PATIENT WOULD NOT WANT TO GO THROUGH WITH SURGERY, PATIENT CODE STATUS TO BE CHANGED TO DNR WITH COMFORT CARE, ALL QUESTIONS AND CONCERNS ADDRESSED WITH MD AND LESLIE.
--- NOTE | 2021-07-14 12:11 | NUR ---
LINEN CHANGE PROVIDED AT THIS TIME. PATIENT REPOSITIONED FOR COMFORT.
[2021-07-14] MEDS: morphine 2 MG/ML inj. syringe IV PRN ×3 (12:15→22:15)
[2021-07-14 14:30] VITALS: BP 84/41
--- NOTE | 2021-07-14 14:36 | NUR ---
Received report from TIANNA Rodriguez. Pt arrived from ED via gurney. TX to 340A, at bedside. Discussed POC with her. Pt moaning but otherwise unresponsive. Pt Code status DNR CC.
[2021-07-14] MEDS ORDERED: morphine 2 MG/ML inj. syringe IV PRN (15:50)
[2021-07-14] MEDS ORDERED: LORazepam 2 mg/ml vial IV PRN (15:50)
--- NOTE | 2021-07-14 18:30 | NUR ---
Patient in room [facility] 340. I have received report from KENDRA and had the opportunity to ask questions and assume patient care.
[2021-07-14 19:00] VITALS: BP 71/15
--- NOTE | 2021-07-14 19:06 | NUR ---
Problems reprioritized. Patient report given, questions answered & plan of care reviewed with Neelima. Pt had wok in pain. Ativan and Morphine given
[2021-07-14] MEDS ORDERED: lactobacillus rhamnosus 10,000 MMU CELLS/CAPSULE PO SCH (20:00)
[2021-07-15] MEDS: morphine 2 MG/ML inj. syringe IV PRN (04:29)
--- NOTE | 2021-07-15 06:31 | NUR ---
Patient in room [facility] 340. I have received report from CLARITZA WYNN and had the opportunity to ask questions and assume patient care.
--- NOTE | 2021-07-15 06:57 | NUR ---
Problems reprioritized. Patient report given, questions answered & plan of care reviewed with
--- NOTE | 2021-07-15 07:00 | NUR ---
PATIENT OBSERVED TO HAVE AGONAL BREATHING . B/P . Family called and asked to come to unit. All cares given . patient 828 . Family came 0900hrs. spouse and daughter. Coral on called mortuary called and donor network called. Body prepared . Ant picked up patient 1026 to go to [address] [place].
--- NOTE | 2021-07-15 08:34 | NUR ---
PAGER ID: [phone] MESSAGE: Valorie Surg [phone] Re: .[id number] oJsué passes away at 0829 comfort care patient at bedside
--- NOTE | 2021-07-15 08:52 | NUR ---
Called [facility] Performance improvement,to make sure we are to contact Home [employer] due to patient within 24 hours of being admitted on comfort care. Per Lamar go ahead and contact them. [phone] [phone] to call us and also called [facility] [phone] due to only being able to leave a message on vm at [facility] office. Per Janell at [facility] try and call the [place] office back. Still got voicemail.
[2021-07-15 09:00] VITALS: BP 66/27
--- NOTE | 2021-07-15 09:10 | NUR ---
Maria Dolores with the [employer] [employer] called and they have released patient to mortuary not eligible for donation Ref # [id number]
--- NOTE | 2021-07-15 09:13 | NUR ---
Maksim Consult: Maksim score of 9 w/ multiple areas of concern on R arm and BLE. noted pt comfort care, Will continue to monitor. Addendum: 07/15/21 at [address] Amended: Links added.
--- NOTE | 2021-07-15 09:47 | NUR ---
Door Tender, Matt Latham Ref # [id number], Per Credit Operations Specialist they will file as an informational case and ok to realease body to mortuary.
--- NOTE | 2021-07-15 09:58 | NUR ---
Notified Yosvany on [address] they will send someone right over.
== END 2021-07-15 10:29 | DRG 872 ==
LOC: ER 17:05 → ED HOLD 07-14 02:35 → SUR 3N 07-14 14:34
PROVIDERS: ADMIT Internal Medicine Pulmonary Disease; ATTEND Internal Medicine Pulmonary Disease
DX: A41.9 Sepsis, unspecified organism (principal); N17.9 Acute kidney failure, unspecified; L03.116 Cellulitis of left lower limb; L97.923 Non-pressure chronic ulcer of unspecified part of left lower leg with necrosis of muscle; I73.9 Peripheral vascular disease, unspecified; I95.9 Hypotension, unspecified; E78.00 Pure hypercholesterolemia, unspecified; S92.902A Unspecified fracture of left foot, initial encounter for closed fracture; Z51.5 Encounter for palliative care; X58.XXXA Exposure to other specified factors, initial encounter; I10 Essential (primary) hypertension; I25.10 Atherosclerotic heart disease of native coronary artery without angina pectoris; J44.9 Chronic obstructive pulmonary disease, unspecified; N40.0 Benign prostatic hyperplasia without lower urinary tract symptoms; Z87.891 Personal history of nicotine dependence; Z88.8 Allergy status to other drugs, medicaments and biological substances; Z79.899 Other long term (current) drug therapy; Y93.89 Activity, other specified; Y92.89 Other specified places as the place of occurrence of the external cause; Y99.8 Other external cause status
CPT/HCPCS: 36415; 71045; 73620; 80053; 80202; 81001; 83605; 83735; 84145; 85007; 85025; 87040; 87077; 87186; 93005; 93926; 99285; G0378; J2060; J2270; J2405; J2543; J3370; J7030